=== PATIENT | male | born 1935 | race Caucasian/White ===

== ENCOUNTER 2018-01-09 05:02 | Inpatient (IN) ==
[2018-01-01 13:55] LABS: Appearance,Urine CLEAR; Bilirubin,Urine NEG (NEG); Color,Urine YELLOW; Glucose,Urine (UA) NEGATIVE (NEG); Leukocyte Esterase,Urine NEG /uL (NEG); Protein,Urine NEG (NEG); Specific Gravity,Urine 1.014 (1.000-1.035); Urine Blood NEG mg/dL (<0.03)
[2018-01-01 14:23] LABS: Basophils # (Auto) 0 K/mcL (0.0-0.3); Basophils % (Auto) 0.5 % (0.0-2.0); Eosinophils # (Auto) 0.2 K/mcL (0.0-0.7); Eosinophils % (Auto) 2.7 % (0.0-7.0); Lymphocytes # (Auto) 1.4 K/mcL (1.5-4.8); Lymphocytes % (Auto) 23.8 % (15.5-49.0); Mean Cell Volume 97.1 fL (80.0-100.0); Monocytes # (Auto) 0.9 K/mcL (0.1-0.9); Platelet Count 183 K/mcL (140-440); RBC 4.67 M/mcL (4.50-5.90); Red Cell Distribution Width 13.8 % (11.5-14.5)
[2018-01-01 14:50] LABS: Erythrocyte Sedimentation Rate 14 mm/hr (0-15)
[2018-01-01 15:40] LABS: Blood Urea Nitrogen 26 mg/dl (8-23); C-Reactive Protein < 0.3 mg/dl (0.0-0.8)
[~2018-01-09 05:02] MED LIST: ceFAZolin 1 GM VIAL IV ONE
[2018-01-09] MEDS ORDERED: 0.9 % SODIUM CHLORIDE 9 ML, KETOROLAC 30 MG, ROPIVACAINE HCL/PF 49.5 ML, EPINEPHrine 0.... IJ SCH (07:00)
[2018-01-09] MEDS ORDERED: ceFAZolin 1 GM VIAL IV SCH (07:00)
[2018-01-09] MEDS ORDERED: PROPOFOL 200 MG/20 ML VIAL IV ONE (07:35)
[2018-01-09] MEDS ORDERED: GLYCOPYRROLATE 0.2 MG/ML VIAL IV ONE (07:35)
[2018-01-09] MEDS ORDERED: ROPIVACAINE HCL/PF 30 ML VIAL IJ ONE (07:35)
[2018-01-09] MEDS ORDERED: KETAMINE 100 MG/ML ML IV ONE (07:35)
[2018-01-09] MEDS ORDERED: LIDOCAINE HCL/PF 100 MG/5 ML SYRINGE IV ONE (07:35)
[2018-01-09] MEDS ORDERED: ONDANSETRON 4 MG/2 ML VIAL IV ONE (07:35)
[2018-01-09] MEDS ORDERED: PHENYLEPHRINE 10 MG/ML VIAL IV ONE (07:35)
[2018-01-09] MEDS ORDERED: MIDAZOLAM 2 MG/2 ML VIAL IV ONE (07:35)
[2018-01-09] MEDS ORDERED: TRANEXAMIC ACID 1,000 MG/10 ML VIAL IV ONE (07:35)
[2018-01-09] MEDS ORDERED: GENTAMICIN SULFATE 800 MG/20 ML VIAL IR ONE (08:04)
[2018-01-09] MEDS ORDERED: ACETAMINOPHEN 1,000 MG/100 ML BOTTLE IV ONE (09:41)
[2018-01-09] MEDS ORDERED: METHOCARBAMOL 1,000 MG/10 ML VIAL IV PRN (09:41)
[2018-01-09] MEDS ORDERED: KETOROLAC 15 MG/ML VIAL IV PRN (09:41)
[2018-01-09] MEDS ORDERED: MEPERIDINE 25 MG/ML SYRINGE IV PRN (09:41)
[2018-01-09] MEDS ORDERED: IPRATROPIUM/ALBUTEROL 3 ML AMPUL.NEB NEB PRN (09:41)
[2018-01-09] MEDS ORDERED: ONDANSETRON 4 MG/2 ML VIAL IV PRN ×2 (09:41→10:03)
[2018-01-09] MEDS ORDERED: fentaNYL 100 MCG/2 ML VIAL IV PRN (09:41)
[2018-01-09] MEDS ORDERED: LACTATED RINGERS 1,000 ML IV SCH (09:45)
--- NOTE | 2018-01-09 10:02 | Brief Operative Note ---
Date of procedure: 01/09/18 Pre-op diagnosis: stiff TKR right Post-op diagnosis: same Procedure: revision right TKR Grafts/Implants: Yes (sigma TC 3) Anesthesia: ISAEL Surgeon: Lexa Gilbert Process Manufacturing Engineer: Tomi Dunbar Estimated blood loss (cc): 100 Tourniquet Time (Minutes): 90 Specimens Removed/Pathology: none sent Condition: stable Disposition: PACU
[2018-01-09] MEDS ORDERED: BISACODYL 10 MG SUPP.RECT PR PRN (10:03)
[2018-01-09] MEDS ORDERED: MAGNESIUM HYDROXIDE 30 ML ORAL.SUSP PO PRN (10:03)
[2018-01-09] MEDS ORDERED: BENZOCAINE/MENTHOL 1 LOZENGE PO PRN (10:03)
[2018-01-09] MEDS ORDERED: FLEETS ADULT ENEMA PR PRN (10:03)
[2018-01-09] MEDS ORDERED: TRANEXAMIC ACID 1,000 MG/10 ML VIAL IV SCH (10:03)
[2018-01-09] MEDS ORDERED: POLYETHYLENE GLYCOL 3350 17 GM PACKET PO PRN (10:03)
--- NOTE | 2018-01-09 10:52 | Operative Note ---
DATE OF OPERATION: 01/09/2018 PREOPERATIVE DIAGNOSIS: Stiff total knee replacement. POSTOPERATIVE DIAGNOSIS: Stiff total knee replacement. OPERATION: Revision right total knee. SURGEON: Lexa Gilbert M.D. MANAGER FAST FOOD: Tomi Dunbar PA-C. ANESTHESIA: General done by Demi Everett M.D. ESTIMATED BLOOD LOSS: 100 mL. TOURNIQUET TIME: 90 minutes. SUMMARY OF PROCEDURE: General anesthesia was attained. The right leg was prepped and draped. A tourniquet was put up. A midline incision was made from the quadriceps to the tibial tubercle. This was taken down to the quadriceps and medial retinaculum. The quadriceps and medial retinaculum was split. There were multiple adhesions which were released throughout. I released the adhesions between the fat pad and the tibial component. In order to invert the patella, I had to do a lateral release. The patella was mobilized laterally. The medial soft tissue was elevated. The old components were removed. The patella showed no signs of wear and was well fixed and we, therefore, did not revise the patella. The tibia was done first. The intramedullary canal was sequentially reamed. The broach was then used for the sleeve. The tibia sized to a 3. The femur was next addressed. This was reamed to 20 and then broached until the fit was tight. Prior to that, the femur was sized, and the femur sized to a 4. The distal cut was freshened up and the anterior, posterior and bevel cuts were made. We built up the femur by 4 mm distally. There was a defect laterally which was 4 mm as well. A trial was done with components. The insert sized to a 10. I did a posterior release using an osteotome. I was able to get the patient into full extension and had excellent medial-lateral stability. 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 The joint surfaces were thoroughly irrigated and the CarboJet was used as well. The trials of the actual components were prepped on the back table and connected together and included intramedullary fixation, as well as sleeves. They were next impacted. The cement was allowed to cure in full extension and excess cement was removed. The tourniquet was let down. All bleeding points were coagulated. Closure was done in 60 degrees of flexion. A two-layer closure was done of the medial retinaculum and quadriceps using simple buried sutures of #2 FiberWire in a running locking Maxon. The subcutaneous tissue was closed with 2-0 Monocryl. The skin was closed with Dura-Hernandez. A sterile compressive dressing was applied. The sponge and needle count was correct. The patient tolerated the procedure well and was taken to the recovery room in stable condition. TJF:marco Job ID: [id number] Doc ID: [id number] Lexa Gilbert MD
--- NOTE | 2018-01-09 11:28 | XRay Report ---
HISTORY: Postop arthroplasty revision FINDINGS: There is a well-positioned right total knee prosthesis. There are long intramedullary components of the prosthesis extending into the femur and tibia. Periarticular soft tissue calcifications are present along both medial lateral to the joint space. There are vascular calcifications in the thigh and calf. IMPRESSION: Well-positioned right knee prosthesis Interpreted and Authenticated by: James Pagan 01/09/18
[2018-01-09] MEDS: 0.9 % SODIUM CHLORIDE 1,000 ML IV SCH ×2 (14:54→20:21)
[2018-01-09] MEDS: ceFAZolin 1 GM VIAL IV SCH (14:54)
[2018-01-09] MEDS: 0.9 % SODIUM CHLORIDE 10 ML SYRINGE IV SCH ×2 (15:12→21:08)
[2018-01-09] MEDS: HYDROCODONE/APAP 7.5/325MG TABLET PO PRN ×2 (17:33→20:20)
[2018-01-09] MEDS: CARVEDILOL 3.125 MG TABLET PO SCH (18:12)
[2018-01-09] MEDS: METHOCARBAMOL 1,000 MG/10 ML VIAL IV PRN (21:07)
[2018-01-09] MEDS: ASPIRIN 325 MG ENTERIC COATED TABLET PO SCH (21:08)
[2018-01-09] MEDS: SIMVASTATIN 10 MG TABLET PO SCH (21:08)
[2018-01-09] MEDS: DOCUSATE SODIUM 100 MG CAPSULE PO SCH (21:08)
[2018-01-09] MEDS: SENNOSIDES 1 TABLET PO SCH (21:08)
[2018-01-09] MEDS: ZOLPIDEM 5 MG TABLET PO SCH (21:08)
[2018-01-10] MEDS: ceFAZolin 1 GM VIAL IV SCH (00:59)
[2018-01-10] MEDS ORDERED: ceFAZolin 1 GM VIAL ONE (01:03)
[2018-01-10] MEDS: HYDROCODONE/APAP 7.5/325MG TABLET PO PRN ×5 (03:30→20:56)
[2018-01-10] MEDS: 0.9 % SODIUM CHLORIDE 10 ML SYRINGE IV SCH ×3 (05:17→20:57)
[2018-01-10] MEDS: 0.9 % SODIUM CHLORIDE 1,000 ML IV SCH ×2 (06:16→17:09)
[2018-01-10] MEDS: CARVEDILOL 3.125 MG TABLET PO SCH ×2 (07:43→17:11)
[2018-01-10] MEDS: GLUCOSAMINE/CHONDROITIN SULF A 1 CAP CAPSULE PO SCH (08:09)
[2018-01-10] MEDS: CYANOCOBALAMIN (VITAMIN B-12) 500 MCG TABLET PO SCH (08:09)
[2018-01-10] MEDS: DOCUSATE SODIUM 100 MG CAPSULE PO SCH ×2 (08:10→20:57)
[2018-01-10] MEDS: HYDROCHLOROTHIAZIDE 25 MG TABLET PO SCH (08:10)
[2018-01-10] MEDS: ASPIRIN 325 MG ENTERIC COATED TABLET PO SCH ×2 (08:10→20:57)
[2018-01-10] MEDS: LOSARTAN 50 MG TABLET PO SCH (08:10)
[2018-01-10] MEDS: METHOCARBAMOL 1,000 MG/10 ML VIAL IV PRN (08:18)
--- NOTE | 2018-01-10 09:25 | Discharge Summary ---
<Lexa Gilbert - Last Filed: 01/10/18 09:23> Providers - Providers Patient information: Note initiated : 01/10/18 at 9:23 am Service Date, if different from initiated Date: [] Patient: Allen Posey 82 y/o M admitted on 01/09/18 for Right Total Knee Arthroplasty Revision. Chief Complaint: [] Date of admission: 01/09/18 Discharge date: 01/11/18 Attending physician: Lexa Gilbert Hospitalization Hospital course: R total knee replacement revision. No early complications Discharge diagnosis: total knee replacement revision Complications: none Exam - Exam Clean and dry: Yes Weight bearing status: full Range of motion: 0-50 01/10 Ortho Discharge - TKA - Patient Instructions Diet: Regular Diet Activity: activity as tolerated Total Knee Protocol: For Total Knee: Start ROM MACARIO with stationary bike or rocking chair. Work on gaining full extension of knee. Posterior dislocation precautions provided. Hip abductor strengthening and gait training instructions provided. Apply Cryocuff as instructed. Dressing Care: May shower in 3 days Patient Education: Hydrocodone/Acetaminophen (By mouth), Total Knee Replacement (DC) Additional Instructions: Discharge Instructions: Do the exercises at home that physical therapy gave you throughout the day. Weight bearing as tolerated. Wear comfortable clothing for physical therapy. You are scheduled to start physical therapy at [facility] ([phone]) on Saturday at 4:00 pm, please arrive 15 minutes early for paperwork. Take your prescription, photo ID, insurance cards, and current medication list with you to your first physical therapy appointment. 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 Cover site daily with gauze dressing. You may start showering on post op day #2. The Dermabond dressing can get wet, do not scrub dressing. Pat dry, then place new dressing (above). To avoid constipation while taking any narcotic pain medication, take an over the counter stool softener/laxative. Use your Cryocuff or ice packs as directed, on for 20 minutes at a time throughout the day. This and elevation will help with pain and swelling. Call your physician for fevers above 100.5 or pain not controlled by medication. Your prescriptions are with your discharge information. Some medications were electronically transmitted to your pharmacy of choice. Take Aspirin twice daily, for 30 days, as prescribed to prevent blood clots ( see medication list). - Follow Up Plan Follow Up Appointments: Tomi Dunbar PA-C [Physician Abseiling Instructor] - 01/20/18 1:10 pm Disposition: Home, Self-Care Prognosis: Good Rehab Potential: Good I certify that the patient requires SNF services: No Overall status at discharge: patient is progressing back to baseline - Orders For Discharge Prescriptions: Hydrocodone/APAP 7.5/325Mg [[place] 7.5-325Mg] 1 - 2 tab PO Q4HP PRN #50 tab PRN Reason: Pain Level 3-6 Additional Discharge Orders: Physical Therapy at Discharge - TKA Location: None Selected CPM Discharge Order Location: None Selected Toilet Riser Discharge Order Location: None Selected Walker Location: None Selected Pending Studies Resuscitation Status Full Code Diet Regular Diet Start Ita Jan 09 1240 Hydrocodone Bitart/Acetaminophen ([place] 7.5/325mg) 0 tab PO Q4HP PRN PRN Reason: PAIN LEVEL 3-6 Last Admin: 01/10/18 08:54 Dose: 1 tab Admin: 01/10/18 05:15 Dose: 1 tab Admin: 01/10/18 03:30 Dose: 1 tab Admin: 01/09/18 20:20 Dose: 1 tab Admin: 01/09/18 17:33 Dose: 1 tab Aspirin (Ecotrin) 325 mg PO BID [facility] Last Admin: 01/10/18 08:10 Dose: 325 mg Admin: 01/09/18 21:08 Dose: 325 mg [facility] Last Admin: 01/10/18 07:43 Dose: 3.125 mg Admin: 01/09/18 18:12 Dose: 3.125 mg Cyanocobalamin (Vitamin B-12) 500 mcg PO DAILY [facility] Last Admin: 01/10/18 08:09 Dose: 500 mcg Docusate Sodium (Colace) 100 mg PO BID [facility] Last Admin: 01/10/18 08:10 Dose: 100 mg Admin: 01/09/18 21:08 Dose: 100 mg Glucosamine/Chondroitin (Glucosamine-Chondroitin Cap) 1 cap PO DAILY [facility] Last Admin: 01/10/18 08:09 Dose: 1 cap Hydrochlorothiazide (Oretic) 25 mg PO DAILY [facility] Last Admin: 01/10/18 08:10 Dose: 25 mg Sodium Chloride (Sodium Chloride 0.9%) 1,000 mls @ 100 mls/hr IV .Q10H [facility] Last Admin: 01/10/18 06:16 Dose: Infusion: 01/10/18 01:35 Dose: 0 mls/hr Admin: 01/09/18 20:21 Dose: Not Given Admin: 01/09/18 14:54 Dose: 100 mls/hr Losartan Potassium (Cozaar) 50 mg PO DAILY [facility] Last Admin: 01/10/18 08:10 Dose: 50 mg Methocarbamol (Robaxin) 750 mg IV Q6HP PRN PRN Reason: Muscle Spasm Last Admin: 01/10/18 08:18 Dose: 750 mg Admin: 01/09/18 21:07 Dose: 750 mg Senna (Senokot) 2 tab PO HS [facility] Last Admin: 01/09/18 21:08 Dose: 2 tab Simvastatin (Zocor) 20 mg PO [facility] Last Admin: 01/09/18 21:08 Dose: 20 mg Sodium Chloride (Saline Flush) 10 ml IV Q8 [facility] Last Admin: 01/10/18 05:17 Dose: 10 ml Admin: 01/09/18 21:08 Dose: Not Given Admin: 01/09/18 15:12 Dose: Not Given Zolpidem Tartrate (Ambien) 5 mg PO [facility] Last Admin: 01/09/18 21:08 Dose: 5 mg Shift Summary 01/10/18 04:30 Shift Summary by Candi Carlisle Pt able to stand at side of bed last evening and take a few steps. CPM at 35 deg. Pt has been taking one norco 7.5 at a time. Last at 0330 will medicate again prior to shift change. Pt has Keith cath in place draining clear yellow urine. Orders to D/C post op day 1. Pt was awake in bead each time this RN entered room. IV is SL. Will update with verbal report. Initialized on 01/10/18 04:30 - END OF NOTE <Tomi Dunbar - Last Filed: 01/11/18 10:29> Providers - Providers Patient information: Note initiated : 01/11/18 at 10:17 am Service Date, if different from initiated Date: [] Patient: Allen Posey 82 y/o M admitted on 01/09/18 for Right Total Knee Arthroplasty Revision. Chief Complaint: [] Exam - Exam Incision healing: Yes Ortho Discharge - TKA - Patient Instructions Total Knee Protocol: For Total Knee: Start ROM MACARIO with stationary bike or rocking chair. Work on gaining full extension of knee. Posterior dislocation precautions provided. Hip abductor strengthening and gait training instructions provided. Apply Cryocuff as instructed. Pending Studies Resuscitation Status Full Code Diet Regular Diet Start Ita Jan 09 1240 Hydrocodone Bitart/Acetaminophen ([place] 7.5/325mg) 0 tab PO Q4HP PRN PRN Reason: PAIN LEVEL 3-6 Last Admin: 01/11/18 08:26 Dose: 1 tab Admin: 01/11/18 02:24 Dose: 2 tab Admin: 01/10/18 20:56 Dose: 2 tab Admin: 01/10/18 12:24 Dose: 1 tab Admin: 01/10/18 08:54 Dose: 1 tab Admin: 01/10/18 05:15 Dose: 1 tab Admin: 01/10/18 03:30 Dose: 1 tab Admin: 01/09/18 20:20 Dose: 1 tab Admin: 01/09/18 17:33 Dose: 1 tab Aspirin (Ecotrin) 325 mg PO BID [facility] Last Admin: 01/11/18 08:22 Dose: 325 mg Admin: 01/10/18 20:57 Dose: 325 mg Admin: 01/10/18 08:10 Dose: 325 mg Admin: 01/09/18 21:08 Dose: 325 mg Carvedilol (Coreg) [facility] Last Admin: 01/11/18 08:22 Dose: 3.125 mg Admin: 01/10/18 17:11 Dose: 3.125 mg Admin: 01/10/18 07:43 Dose: 3.125 mg Admin: 01/09/18 18:12 Dose: 3.125 mg Cyanocobalamin (Vitamin B-12) 500 mcg PO DAILY [facility] Last Admin: 01/11/18 08:22 Dose: 500 mcg Admin: 01/10/18 08:09 Dose: 500 mcg Docusate Sodium (Colace) 100 mg PO BID [facility] Last Admin: 01/11/18 08:22 Dose: 100 mg Admin: 01/10/18 20:57 Dose: 100 mg Admin: 01/10/18 08:10 Dose: 100 mg Admin: 01/09/18 21:08 Dose: 100 mg Glucosamine/Chondroitin (Glucosamine-Chondroitin Cap) 1 cap PO DAILY [facility] Last Admin: 01/11/18 08:22 Dose: 1 cap Admin: 01/10/18 08:09 Dose: 1 cap Hydrochlorothiazide (Oretic) 25 mg PO DAILY [facility] Last Admin: 01/11/18 08:22 Dose: 25 mg Admin: 01/10/18 08:10 Dose: 25 mg Sodium Chloride (Sodium Chloride 0.9%) 1,000 mls @ 100 mls/hr IV .Q10H [facility] Last Admin: 01/11/18 01:25 Dose: Admin: 01/10/18 17:09 Dose: Admin: 01/10/18 06:16 Dose: Infusion: 01/10/18 01:35 Dose: 0 mls/hr Admin: 01/09/18 20:21 Dose: Not Given Admin: 01/09/18 14:54 Dose: 100 mls/hr Losartan Potassium (Cozaar) 50 mg PO DAILY [facility] Last Admin: 01/11/18 08:22 Dose: 50 mg Admin: 01/10/18 08:10 Dose: 50 mg Methocarbamol (Robaxin) 750 mg IV Q6HP PRN PRN Reason: Muscle Spasm Last Admin: 01/10/18 08:18 Dose: 750 mg Admin: 01/09/18 21:07 Dose: 750 mg Omeprazole (Prilosec) 20 mg PO ACB [facility] Last Admin: 01/11/18 08:53 Dose: 20 mg Senna (Senokot) 2 tab PO HS [facility] Last Admin: 01/10/18 20:56 Dose: 2 tab Admin: 01/09/18 21:08 Dose: 2 tab Simvastatin (Zocor) 20 mg PO HS [facility] Last Admin: 01/10/18 20:56 Dose: 20 mg Admin: 01/09/18 21:08 Dose: 20 mg Sodium Chloride (Saline Flush) 10 ml IV Q8 [facility] Last Admin: 01/11/18 05:51 Dose: 10 ml Admin: 01/10/18 20:57 Dose: 10 ml Admin: 01/10/18 14:30 Dose: 10 ml Admin: 01/10/18 05:17 Dose: 10 ml Admin: 01/09/18 21:08 Dose: Not Given Admin: 01/09/18 15:12 Dose: Not Given Zolpidem Tartrate (Ambien) 5 mg PO HS [facility] Last Admin: 01/10/18 20:57 Dose: 5 mg Admin: 01/09/18 21:08 Dose: 5 mg Shift Summary 01/11/18 03:43 Shift Summary by Candi Carlisle Pt recieved two pain pills at HS and was able to get pain down enough to get some sleep. Pt is using urinal at night to void with QS out. Dressing to right knee is CDI. Pt received 2 more pain pills around 230. Pt is up with SBA and FWW in room. CPM on for 2 hours no change in settings. Pt tolerating well. Low grade temp that resolves with IS. Please encourage pt to use IS more frequently during the day. Will update with verbal report. Initialized on 01/11/18 03:43 - END OF NOTE
--- NOTE | 2018-01-10 09:40 | Orthopedic Progress Note ---
Subjective Patient information: Note initiated : 01/10/18 at 9:37 am Service Date, if different from initiated Date: [] Patient: Allen Posey 82 y/o M admitted on 01/09/18 for Right Total Knee Arthroplasty Revision. Chief Complaint: [] Principal diagnosis: knee replacement revision right Interval history: surgery yesterday Pertinent ROS: no medical complications Objective Vital signs: Vital Signs Temp Pulse Resp BP Pulse Ox 01/10/18 06:52 98.2 F 16 95/59 94 01/10/18 04:00 97.6 F 94 H 20 114/65 90 01/10/18 00:00 98.9 F 84 20 123/74 92 01/09/18 20:00 97.6 F 80 18 128/68 96 01/09/18 16:09 97.8 F 60 14 138/75 97 01/09/18 13:39 60 138/75 97 01/09/18 13:08 74 137/84 99 01/09/18 12:39 68 112/70 97 01/09/18 12:24 60 122/72 96 01/09/18 12:09 60 121/66 96 01/09/18 12:05 95.4 F L 91 H 12 117/64 95 01/09/18 11:54 62 120/71 97 01/09/18 11:39 61 117/64 95 01/09/18 11:13 97.0 F 60 14 114/53 98 01/09/18 10:56 97.1 F 60 12 98/47 97 01/09/18 10:51 97.1 F 60 12 100/55 100 01/09/18 10:46 97.2 F 61 12 136/65 100 01/09/18 10:41 97.3 F 62 12 166/81 100 01/09/18 10:36 97.2 F 60 12 181/90 100 01/09/18 10:31 97.2 F 60 11 L 133/70 100 01/09/18 10:26 97.2 F 60 10 L 130/67 100 Intake and Output 01/09/18 01/10/18 01/10/18 21:59 05:59 13:59 Intake Total 240 / 240 0 / 2049 800 / 800 Output Total 850 / 850 Balance 240 / 240 1200 / 1200 800 / 800 Intake: IV 1000 / 1000 Sodium Chloride 0.9% 1,000 ml @ 1000 / 1000 100 mls/hr IV .Q10H [facility] Rx#: [id number] Oral 240 / 240 1050 / 1050 800 / 800 Output: Urine Catheter Amount 850 / 850 Other: Meal Dinner Percent of Meal Consumed 100% Feeding Ability Independent Urine Appearance Uretheral (Keith) Clear Weight 171 lb Intake & Output: Intake & Output 01/09/18 01/10/18 01/10/18 21:59 05:59 13:59 Intake Total 240 / 240 2050 / 2050 800 / 800 Output Total 850 / 850 Balance 240 / 240 1200 / 1200 800 / 800 Weight 171 lb Intake: IV 1000 / 1000 Sodium Chloride 0.9% 1,000 ml @ 1000 / 1000 100 mls/hr IV .Q10H [facility] Rx#: [id number] Oral 240 / 240 1050 / 1050 800 / 800 Output: Urine Catheter Amount 850 / 850 Other: Meal Dinner Percent of Meal Consumed 100% Feeding Ability Independent Urine Appearance Uretheral (Keith) Clear Dressing: Yes clean, Yes dry Weight bearing status: as tolerated Neurological exam IM: Yes motor sensory intact Extremities exam IM: Yes calf tenderness - Diagnostic Results Knee x-ray: image reviewed (well aligned revision TKR) - Labs CBC & BMP: 01/10/18 04:05 01/01/18 11:49 Labs: 01/10/18 01/01/18 04:05 11:49 Hgb 12.3 L 14.9 Hct 36.6 L 45.3
[2018-01-10] MEDS: SIMVASTATIN 10 MG TABLET PO SCH (20:56)
[2018-01-10] MEDS: SENNOSIDES 1 TABLET PO SCH (20:56)
[2018-01-10] MEDS: ZOLPIDEM 5 MG TABLET PO SCH (20:57)
[2018-01-11] MEDS: 0.9 % SODIUM CHLORIDE 1,000 ML IV SCH (01:25)
[2018-01-11] MEDS: HYDROCODONE/APAP 7.5/325MG TABLET PO PRN ×3 (02:24→13:20)
[2018-01-11] MEDS: 0.9 % SODIUM CHLORIDE 10 ML SYRINGE IV SCH (05:51)
[2018-01-11] MEDS ORDERED: OMEPRAZOLE 20 MG CAPSULE PO SCH (07:30)
[2018-01-11] MEDS: ASPIRIN 325 MG ENTERIC COATED TABLET PO SCH (08:22)
[2018-01-11] MEDS: HYDROCHLOROTHIAZIDE 25 MG TABLET PO SCH (08:22)
[2018-01-11] MEDS: LOSARTAN 50 MG TABLET PO SCH (08:22)
[2018-01-11] MEDS: GLUCOSAMINE/CHONDROITIN SULF A 1 CAP CAPSULE PO SCH (08:22)
[2018-01-11] MEDS: CYANOCOBALAMIN (VITAMIN B-12) 500 MCG TABLET PO SCH (08:22)
[2018-01-11] MEDS: DOCUSATE SODIUM 100 MG CAPSULE PO SCH (08:22)
[2018-01-11] MEDS: CARVEDILOL 3.125 MG TABLET PO SCH (08:22)
--- NOTE | 2018-01-11 10:32 | Discharge Summary ---
Providers - Providers Patient information: Note initiated : 01/11/18 at 10:29 am Service Date, if different from initiated Date: [] Patient: Allen Posey 82 y/o M admitted on 01/09/18 for Right Total Knee Arthroplasty Revision. Chief Complaint: [] Discharge date: 01/11/18 Hospitalization Hospital course: Patient was admitted for PT and pain control after surgery. He had no complications during his stay. Discharge diagnosis: s/p right total knee revision Exam - Exam Clean and dry: Yes Weight bearing status: full Range of motion: 10-70 Ortho Discharge - TKA - Patient Instructions Diet: Regular Diet Activity: activity as tolerated Total Knee Protocol: For Total Knee: Start ROM MACARIO with stationary bike or rocking chair. Work on gaining full extension of knee. Posterior dislocation precautions provided. Hip abductor strengthening and gait training instructions provided. Apply Cryocuff as instructed. Dressing Care: May shower in 2 days, Other (Leave dermabond in place until follow up appointment) Patient Education: Hydrocodone/Acetaminophen (By mouth), Total Knee Replacement (DC) Additional Instructions: Discharge Instructions: Do the exercises at home that physical therapy gave you throughout the day. Weight bearing as tolerated. Wear comfortable clothing for physical therapy. You are scheduled to start physical therapy at [facility] ([phone]) on Saturday at 4:00 pm, please arrive 15 minutes early for paperwork. Take your prescription, photo ID, insurance cards, and current medication list with you to your first physical therapy appointment. Take your prescription to order picker any medication or equipment (such as walker, crutches, toilet riser or C.P.M.) If you have Dermabond (a dressing with a mesh-like appearance), DO NOT remove mesh. Cover site daily with gauze dressing. You may start showering on post op day #2. The Dermabond dressing can get wet, do not scrub dressing. Pat dry, then place new dressing (above). To avoid constipation while taking any narcotic pain medication, take an over the counter stool softener/laxative. Use your Cryocuff or ice packs as directed, on for 20 minutes at a time throughout the day. This and elevation will help with pain and swelling. Call your physician for fevers above 100.5 or pain not controlled by medication. Your prescriptions are with your discharge information. Some medications were electronically transmitted to your pharmacy of choice. Take Aspirin twice daily, for 30 days, as prescribed to prevent blood clots ( see medication list). - Follow Up Plan Follow Up Appointments: Tomi Dunbar PA-C [Physician Mailing Manager] - 01/20/18 1:10 pm Disposition: Home, Self-Care Prognosis: Good Rehab Potential: Good I certify that the patient requires SNF services: No - Orders For Discharge Prescriptions: Hydrocodone/APAP 7.5/325Mg [[place] 7.5-325Mg] 1 - 2 tab PO Q4HP PRN #50 tab PRN Reason: Pain Level 3-6 Additional Discharge Orders: Physical Therapy at Discharge - TKA Location: None Selected CPM Discharge Order Location: None Selected Toilet Riser Discharge Order Location: None Selected Walker Location: None Selected Pending Studies Resuscitation Status Full Code Diet Regular Diet Start Ita Oct 18 1240 Hydrocodone Bitart/Acetaminophen ([place] 7.5/325mg) 0 tab PO Q4HP PRN PRN Reason: PAIN LEVEL 3-6 Last Admin: 01/11/18 08:26 Dose: 1 tab Admin: 01/11/18 02:24 Dose: 2 tab Admin: 01/10/18 20:56 Dose: 2 tab Admin: 01/10/18 12:24 Dose: 1 tab Admin: 01/10/18 08:54 Dose: 1 tab Admin: 01/10/18 05:15 Dose: 1 tab Admin: 01/10/18 03:30 Dose: 1 tab Admin: 01/09/18 20:20 Dose: 1 tab Admin: 01/09/18 17:33 Dose: 1 tab Aspirin (Ecotrin) 325 mg PO BID [facility] Last Admin: 01/11/18 08:22 Dose: 325 mg Admin: 01/10/18 20:57 Dose: 325 mg Admin: 01/10/18 08:10 Dose: 325 mg Admin: 01/09/18 21:08 Dose: 325 mg [facility]) [facility] Last Admin: 01/11/18 08:22 Dose: 3.125 mg Admin: 01/10/18 17:11 Dose: 3.125 mg Admin: 01/10/18 07:43 Dose: 3.125 mg Admin: 01/09/18 18:12 Dose: 3.125 mg Cyanocobalamin (Vitamin B-12) 500 mcg PO DAILY [facility] Last Admin: 01/11/18 08:22 Dose: 500 mcg Admin: 01/10/18 08:09 Dose: 500 mcg Docusate Sodium (Colace) 100 mg PO BID [facility] Last Admin: 01/11/18 08:22 Dose: 100 mg Admin: 01/10/18 20:57 Dose: 100 mg Admin: 01/10/18 08:10 Dose: 100 mg Admin: 01/09/18 21:08 Dose: 100 mg Glucosamine/Chondroitin (Glucosamine-Chondroitin Cap) 1 cap PO DAILY [facility] Last Admin: 01/11/18 08:22 Dose: 1 cap Admin: 01/10/18 08:09 Dose: 1 cap Hydrochlorothiazide (Oretic) 25 mg PO DAILY [facility] Last Admin: 01/11/18 08:22 Dose: 25 mg Admin: 01/10/18 08:10 Dose: 25 mg Sodium Chloride (Sodium Chloride 0.9%) 1,000 mls @ 100 mls/hr IV .Q10H [facility] Last Admin: 01/11/18 01:25 Dose: Admin: 01/10/18 17:09 Dose: Admin: 01/10/18 06:16 Dose: Infusion: 01/10/18 01:35 Dose: 0 mls/hr Admin: 01/09/18 20:21 Dose: Not Given Admin: 01/09/18 14:54 Dose: 100 mls/hr Losartan Potassium (Cozaar) 50 mg PO DAILY [facility] Last Admin: 01/11/18 08:22 Dose: 50 mg Admin: 01/10/18 08:10 Dose: 50 mg Methocarbamol (Robaxin) 750 mg IV Q6HP PRN PRN Reason: Muscle Spasm Last Admin: 01/10/18 08:18 Dose: 750 mg Admin: 01/09/18 21:07 Dose: 750 mg Omeprazole (Prilosec) 20 mg PO ACB [facility] Last Admin: 01/11/18 08:53 Dose: 20 mg Senna (Senokot) 2 tab PO HS [facility] Last Admin: 01/10/18 20:56 Dose: 2 tab Admin: 01/09/18 21:08 Dose: 2 tab Simvastatin (Zocor) 20 mg PO HS [facility] Last Admin: 01/10/18 20:56 Dose: 20 mg Admin: 10/18/18 21:08 Dose: 20 mg Sodium Chloride (Saline Flush) 10 ml IV Q8 [facility] Last Admin: 01/11/18 05:51 Dose: 10 ml Admin: 01/10/18 20:57 Dose: 10 ml Admin: 01/10/18 14:30 Dose: 10 ml Admin: 01/10/18 05:17 Dose: 10 ml Admin: 01/09/18 21:08 Dose: Not Given Admin: 01/09/18 15:12 Dose: Not Given Zolpidem Tartrate (Ambien) 5 mg PO HS [facility] Last Admin: 01/10/18 20:57 Dose: 5 mg Admin: 01/09/18 21:08 Dose: 5 mg Shift Summary 01/11/18 03:43 Shift Summary by Candi Carlisle Pt recieved two pain pills at HS and was able to get pain down enough to get some sleep. Pt is using urinal at night to void with QS out. Dressing to right knee is CDI. Pt received 2 more pain pills around 230. Pt is up with SBA and FWW in room. CPM on for 2 hours no change in settings. Pt tolerating well. Low grade temp that resolves with IS. Please encourage pt to use IS more frequently during the day. Will update with verbal report. Initialized on 01/11/18 03:43 - END OF NOTE
== END 2018-01-11 15:03 | disposition home or self-care (01) | DRG 468 ==
LOC: MEDSUR 05:02
PROVIDERS: ADMIT Orthopaedic Surgery Foot and Ankle Surgery; ATTEND Orthopaedic Surgery Foot and Ankle Surgery
CPT/HCPCS: 62322; 97161; C1713; C1776; J0131; J0690; J1580; J2001; J2250; J2370; J2405; J2795; J2800; J7030; J7120

== ENCOUNTER 2021-01-16 10:33 | Inpatient (IN) ==
[2021-01-16] MEDS ORDERED: IOPAMIDOL 100 ML BOTTLE IV ONE ×2 (10:34→15:05)
[2021-01-16] MEDS ORDERED: 0.9 % SODIUM CHLORIDE 500 ML IV ONE ×2 (10:46→11:10)
[2021-01-16 11:14] LABS: POC Blood Urea Nitrogen 33 mg/dL (6-20); POC CO2 23 mmol/L (22-30); POC Calcium, Ionized 1.11 mmEq/L (1.16-1.32); POC Chloride 98 mEq/L (96-108); POC Glucose, Random 196 mg/dL (70-105); POC Hematocrit 42 % (41-55); POC Potassium 4.1 mEql/L (3.3-5.1); POC Sodium 134 mEq/L (133-145)
--- NOTE | 2021-01-16 11:34 | XRay Report ---
HISTORY: Chest pain, syncopal episodes FINDINGS: The lungs are clear. The heart size is normal and there is no congestive heart failure. 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 No congestive heart failure is present. There is no pleural effusion. The mediastinum and peggy are normal. There has been no significant change since 01/07/21. Patient had reconstructive surgery in the left shoulder. IMPRESSION: Normal chest. Interpreted and Authenticated by: James Pagan 01/16/21
[2021-01-16] MEDS ORDERED: 0.9 % SODIUM CHLORIDE 1,000 ML IV ONE (11:48)
--- NOTE | 2021-01-16 11:51 | Emergency Department Note ---
Syncope HPI General Chief Complaint: Syncope Stated Complaint: syncopal episodes Time Seen by Provider: 01/16/21 10:44 Source: patient and EMS Mode of arrival: EMS Limitations: no limitations History of Present Illness HPI Narrative: Patient is an 85-year-old gentleman arrives emergency department by ambulance accompanied by his complaining of syncope. History is provided by the patient with some supplemental information from his . He says he was using the bathroom when his legs suddenly gave out from under him and he fell to the ground. He called out to his who then arrived to the bathroom to find him appearing quite pale and somewhat lethargic. He does not think he suffered any significant injuries from the fall but continues to feel quite fatigued and lethargic. He thinks he may have briefly lost consciousness during this episode. Medics arrived to find him hypotensive and transported him to the hospital. He was seen in our emergency department 9 days ago for a fall and rib injuries. He notes that his rib pain has been gradually improving ever since. He denies any fever chills chest pain or shortness of breath at this time. His notes that he has been having decreased oral intake recently and he says that he just has not felt like eating or drinking very much. Related Data Home Medications Medication Instructions Recorded Confirmed carvedilol 3.125 mg PO BIDCC 01/01/18 01/16/21 hydrochlorothiazide 25 mg PO DAILY 01/01/18 01/16/21 losartan [Cozaar] 50 mg PO DAILY 01/01/18 01/16/21 pravastatin 40 mg PO HS 01/01/18 01/16/21 nitroglycerin 0.4 mg SUBLINGUAL Q5M PRN 01/16/21 01/16/21 Allergies Allergy/AdvReac Type Severity Reaction Status Date / Time morphine AdvReac Mild Itching Verified 12/23/20 12:11 Review of Systems ROS ROS Narrative: Narrative: All systems ED: reviewed and negative except as stated. Cardiovascular: Denies chest pain Respiratory: Denies shortness of breath and cough PFSH Narrative Patient History Narrative: Narrative: Medical/Surgical/Family History All Active Problems (Updated 01/16/21 @ 17:17 by Fritz Steven DO) History of coronary artery bypass graft x 3 (Acute) Elevated troponin (Acute) Chronic kidney disease (CKD) stage G3b/A1, moderately decreased glomerular filtration rate (GFR) between 30-44 mL/min/1.73 square meter and albuminuria creatinine ratio less than 30 mg/g (Acute) Bilateral pulmonary embolism (Acute) Contusion of rib on right side (Acute) Contusion of right hip, initial encounter (Acute) Medical History Dupuytren's contracture of right hand Social History Smoking Status: Former smoker Alcohol Intake Frequency: 2+ drinks per day Substance Use: does not use Exam Narrative Narrative: I reviewed the vital signs. Gen -patient is slightly drowsy but arousable to verbal stimuli and in no acute distress. The patient is well groomed. HEENT -head is atraumatic. There is no conjunctival pallor or scleral icterus. Mucous membranes are dry. CV -S1-S2 regular rate and rhythm. Peripheral pulses are palpable. There is no JVD. Resp -breathing is nonlabored. Lungs are clear to auscultation bilaterally. There is no cyanosis. GI - Abdomen is soft and nontender to palpation. There is no guarding or rebound tenderness. Derm -skin is warm and dry. There is no visible rash. MSK -there is no midline vertebral tenderness to palpation Psych -patient has appropriate affect. The patient does not appear internally stimulated. Neuro -patient answers questions appropriately with fluent speech. Patient moves all present extremities equally. General Limitations: no limitations Course Vital Signs Vital signs: Vital Signs Temperature 95.9 F L 01/16/21 10:42 Pulse Rate 93 H 01/16/21 10:42 Respiratory Rate 20 01/16/21 10:42 Blood Pressure 132/115 01/16/21 10:42 Pulse Oximetry (%) 90 01/16/21 10:42 Temperature 98.2 F 01/16/21 14:37 Pulse Rate 93 H 01/16/21 16:20 Respiratory Rate 22 01/16/21 16:20 Blood Pressure 127/97 01/16/21 16:01 Pulse Oximetry (%) 95 01/16/21 16:20 [facility] Narrative Medical decision making narrative: I personally performed interpreted limited bedside transthoracic echocardiogram. Obtain parasternal long and short axis views which were somewhat limited patient positioning and body habitus. There is no large pericardial effusion. There is normal left ventricular ejection fraction. I was unable to obtain satisfactory views to assess for right ventricular strain. Patient presents with syncope and generalized weakness. Given concerns for possible hemorrhage suffered from his fall I obtained a CT scan of his head cervical spine chest abdomen and pelvis. CT head and neck did not reveal any traumatic findings. CT chest abdomen pelvis reveals large bilateral pulmonary emboli with possible right ventricular strain. Given this his mild troponin elevation and elevated BNP I believe his syncope and hypotension are due to pulmonary embolus. I discussed the test results with the patient and his . They are agreeable with the plan for anticoagulation at admission. I did consider administering IV thrombolytics but as the patient's blood pressure has improved somewhat with IV fluids he appears to be mentating well and maintaining vital organ per fusion and his mean arterial pressure is actually fairly good I think the risks of IV thrombolytics would be greater than any potential benefit at this time. I discussed the patient's history examination diagnostic findings with Dr. Lee who will evaluate the patient and accepts admission to his service. Critical care time I provided [31] minutes of critical care time. This was in addition to any separately billable procedures. The patient was given IV fluids to treat his hypotension. He was closely monitored for signs of worsening perfusion or hypotension and the possible need for IV thrombolytics to treat his pulmonary embolus. He was given IV heparin to prevent propagation of his pulmonary embolus and worsening hypotension. The patient was closely monitored for response to treatment and stability of vital signs throughout their emergency department stay. Lab Data Lab results reviewed: Yes I reviewed the patient's lab results. Result diagrams: 01/16/21 10:55 Labs: Lab Results 01/16/21 01/16/21 01/16/21 Range/Units 10:55 10:55 10:55 WBC 7.2 (4.5-11.0) K/mcL RBC 4.20 L (4.63-6.08) M/mcL Hgb 14.1 (13.7-17.5) g/dL Hct 43.5 (40.1-51.0) % POC Hct 42 (41-55) % MCV 103.6 H (80.0-100.0) fL MCH 33.6 (26.0-34.0) pg MCHC 32.4 (31.0-36.0) g/dL RDW 12.7 (11.5-14.5) % Plt Count 155 (140-440) K/mcL MPV 10.7 H (7.4-10.4) fL Neut % (Auto) 61.9 (38.0-78.0) % Lymph % (Auto) 22.7 (15.5-49.0) % Brooke % (Auto) 12.1 H (1.0-12.0) % Eos % (Auto) 2.2 (0.0-7.0) % Baso % (Auto) 1.1 (0.0-2.0) % Lymph # (Auto) 1.63 (1.50-4.80) K/mcL Brooke # (Auto) 0.87 (0.10-0.90) K/mcL Eos # (Auto) 0.16 (0.00-0.70) K/mcL Baso # (Auto) 0.08 (0.00-0.30) K/mcL Absolute Neutrophils 4.44 (1.80-8.00) K/mcL PT (11.9-14.5) sec INR (0.9-1.1) APTT (20.0-37.0) sec POC Sodium 134 (133-145) mEq/L POC Potassium 4.1 (3.3-5.1) mEql/L POC Chloride 98 (96-108) mEq/L POC Total CO2 23 (22-30) mmol/L POC BUN 33 H (6-20) mg/dL POC Creatinine 2.0 H (0.6-1.2) mg/dL POC Glucose 196 H (70-105) mg/dL POC WB Ioniz Calcium 1.11 L (1.16-1.32) mmEq/L Troponin T 0.03 H (<0.03) ng/mL NT-Pro-B Natriuret Pep 1154.0 H (<450.0) pg/mL 01/16/21 Range/Units 10:55 WBC (4.5-11.0) K/mcL RBC (4.63-6.08) M/mcL Hgb (13.7-17.5) g/dL Hct (40.1-51.0) % POC Hct (41-55) % MCV (80.0-100.0) fL MCH (26.0-34.0) pg MCHC (31.0-36.0) g/dL RDW (11.5-14.5) % Plt Count (140-440) K/mcL MPV (7.4-10.4) fL Neut % (Auto) (38.0-78.0) % Lymph % (Auto) (15.5-49.0) % Brooke % (Auto) (1.0-12.0) % Eos % (Auto) (0.0-7.0) % Baso % (Auto) (0.0-2.0) % Lymph # (Auto) (1.50-4.80) K/mcL Brooke # (Auto) (0.10-0.90) K/mcL Eos # (Auto) (0.00-0.70) K/mcL Baso # (Auto) (0.00-0.30) K/mcL Absolute Neutrophils (1.80-8.00) K/mcL PT 15.7 H (11.9-14.5) sec INR 1.2 H (0.9-1.1) APTT 35.9 (20.0-37.0) sec POC Sodium (133-145) mEq/L POC Potassium (3.3-5.1) mEql/L POC Chloride (96-108) mEq/L POC Total CO2 (22-30) mmol/L POC BUN (6-20) mg/dL POC Creatinine (0.6-1.2) mg/dL POC Glucose (70-105) mg/dL POC WB Ioniz Calcium (1.16-1.32) mmEq/L Troponin T (<0.03) ng/mL NT-Pro-B Natriuret Pep (<450.0) pg/mL EKG Data EKG #1: EKG attestation: Yes I reviewed and interpreted this EKG. EKG results narrative: EKG performed at 10:37 AM: Paced rhythm, rate 92. Nonspecific interventricular conduction delay. QTc is prolonged at 533. No old EKG immediately available for comparison. EKG was interpreted by me. Discharge Plan Patient/Caregiver Discharge Instructions Pt seen by SERVICE SUPPORT REPRESENTATIVE/PA only: No Clinical Impression: Bilateral pulmonary embolism Patient Disposition: Xfer As Inpt ([facility]) Condition: Fair Discharge Date/Time: 01/16/21 14:50
[2021-01-16 12:03] LABS: Basophils # (Auto) 0.08 K/mcL (0.00-0.30); Basophils % (Auto) 1.1 % (0.0-2.0); Eosinophils # (Auto) 0.16 K/mcL (0.00-0.70); Eosinophils % (Auto) 2.2 % (0.0-7.0); Hematocrit 43.5 % (40.1-51.0); Hemoglobin 14.1 g/dL (13.7-17.5); Lymphocytes # (Auto) 1.63 K/mcL (1.50-4.80); Lymphocytes % (Auto) 22.7 % (15.5-49.0); Mean Cell Volume 103.6 fL (80.0-100.0); Mean Corpuscular HGB Conc 32.4 g/dL (31.0-36.0); Mean Platelet Volume 10.7 fL (7.4-10.4); Monocytes # (Auto) 0.87 K/mcL (0.10-0.90); Monocytes % (Auto) 12.1 % (1.0-12.0); Neutrophils % (Auto) 61.9 % (38.0-78.0); Platelet Count 155 K/mcL (140-440); Red Cell Distribution Width 12.7 % (11.5-14.5); WBC 7.2 K/mcL (4.5-11.0)
--- NOTE | 2021-01-16 13:05 | Cat Scan Report ---
History: Fell, head injury TECHNIQUE: The brain was imaged without contrast in axial plane at 2.5 mm intervals. Radiation exposure was limited using dose reduction technology. FINDINGS: Bone windows show no skull fracture. There is no intracranial hemorrhage or abnormal extra-axial fluid collection. Age-related degenerative changes are present with moderate atrophy, most apparent in the frontal and temporal lobes. There are patchy areas of decreased attenuation most apparent in the centrum semiovale of both parietal lobes. This may be age-related ischemia or degeneration. Along the inferior border of the left external capsule, deep to the sylvian fissure there is a 9 mm low-attenuation lesion which may be an old lacunar infarct. No acute infarct is detected. The ventricles are prominent but proportionate to the atrophy. Postsurgical changes are present in the orbits with an ocular band around the left globe and postcataract surgery. 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 Steven was called with the report Interpreted and Authenticated by: James Pagan 01/16/21
--- NOTE | 2021-01-16 13:05 | Cat Scan Report ---
History: Syncopal episode fell with multiple injuries TECHNIQUE: Following injection of intravenous nonionic contrast the patient was imaged from the thoracic inlet through the symphysis pubis. Sagittal and coronal reformats were created along with MIPS images of the chest. FINDINGS:. CHEST: There are multiple pulmonary emboli centrally in the right lung. There is also a nonocclusive saddle embolus in the main pulmonary artery. Clot extends into the left lower lobe as well as lingula and all three lobes and the right side. There is mild right heart strain. The main pulmonary artery is 3.7 cm in diameter compared to 3.3 cm with the ascending aorta at the same level. The right ventricle is slightly larger in transverse diameter than the left. Patient has underlying mild interstitial fibrosis throughout both lungs. There is no pulmonary contusion, pneumothorax or consolidating infiltrate. No mass is present. The trachea and bronchi are normal. There has been a prior sternotomy. Pacemaker is present with leads in the right atrium and ventricle. Heart size is within normal limits. Bone windows show no fracture or pneumothorax. Spine has a moderate kyphotic curvature with arthritis at multiple levels. Abdomen and pelvis: There is mild fatty infiltration of the liver. A small hiatus hernia is present. There is focal fatty infiltration in the left lobe adjacent to the gallbladder fossa. The gallbladder has been removed. The bile ducts are nondilated. There is no evidence of mass or inflammation in the pancreas. The spleen, adrenals are normal. There are several cysts in the right kidney. No solid mass, stone or hydronephrosis are present in either kidney. Large amount calcified plaque is present along the wall of normal caliber abdominal aorta and iliac arteries. There are several diverticula in the sigmoid colon. There is no acute diverticulitis. Small bowel is normal. No free fluid or free air present within the abdomen or pelvis. There is no adenopathy. Bone windows show advanced degenerative disc disease and arthritis throughout the lumbar spine. There is no spinal or pelvic fracture. IMPRESSION: Bilateral pulmonary emboli with a saddle embolus in the main pulmonary artery. No evidence of lacerated organs within the chest abdomen or pelvis Degenerative changes in the spine Dr. Steven was called with the report Interpreted and Authenticated by: James Pagan 01/16/21
--- NOTE | 2021-01-16 13:05 | Cat Scan Report ---
History: Syncopal episode fell and neck injury TECHNIQUE: The neck was imaged in axial plane without contrast at 2.5 mm intervals. Sagittal and coronal reformats were created. The radiation exposure was limited using dose reduction technology. FINDINGS: The cervico-occipital junction is normal. Severe arthritis is noted between the odontoid and anterior ring of C1. Severe disc space narrowing is present at C4-5 and moderate to severe narrowing at C3-4. C5-C6 disc is mildly narrowed and there are spurs at all three levels. There is no fracture or destructive bone lesion. Moderate osteoarthritis is present in the left temporal mandibular joint. There are densely calcified plaques in the carotid bifurcations bilaterally. There are small ossifications in the ligamentum nuchae posterior to the spinous processes in the mid and lower neck. Mucosal thickening is seen along the hoffman of the sphenoid sinuses. Patient has a large defect in the nasal septum. There is no soft tissue mass or inflammation in the nasal fossa. 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 Steven was called with report Interpreted and Authenticated by: James Pagan 01/16/21
[2021-01-16] MEDS ORDERED: HEPARIN 5,000 UNIT/ML VIAL SQ ONE (13:08)
[2021-01-16] MEDS ORDERED: HEPARIN SOD,PORK IN 0.45% NACL 25,000 UNIT/500 ML BAG IV SCH (13:15)
[2021-01-16] MEDS ORDERED: NITROGLYCERIN (PP) 0.4 MG TAB.SUBL (#25) SL PRN (13:36)
--- NOTE | 2021-01-16 13:48 | Internal Med History&Physical ---
HPI History of Present Illness Patient information: Note initiated : 01/16/21 at 1:42 pm Service Date, if different from initiated Date: [] Patient: Allen Posey 85 y/o M admitted on for syncopal episodes. Chief Complaint: [pulmonary embolism] History of present illness: Mr. Posey is a 85 year old M history of CAD status post CABG x3, valvular replacement, status post pacemaker placement, presenting with 1 week history of gradual onset, gradually worsening general body weakness. Patient sustained a fall a week ago with hip contusions. Ever since then, he has gradually worsening general body weakness. Earlier this morning, when he was walking to his bed, his leg just gave out and he fell on the ground again. He denies any loss of consciousness. He denies any chest pain palpitations or shortness of breath. He denies any headache or confusions. He was sent by EMS to our ED for further evaluations. Vital signs at ED presentation significant for borderline hyper poor tensions with blood pressure as low as 77/60 mmHg. Oxygen saturations in the high 80s to low 90s. Rest of the vital signs within normal limits. Labs significant for lack of leukocytosis with WBC 7.2. Serum troponin 0.03. Serum creatinine POC 2.0, serum creatinine 1.71-month ago but it was not POC lab. Serum BNP 1154. Whole-body CT including CT angiogram of the chest showing bilateral pulmonary emboli with a saddle embolus in the main pulmonary artery. Constitutional Constitutional: Present weakness; Absent chills, excessive sweating, fatigue and fever(s) EENT Eyes: Absent blurry vision, change in vision, loss of vision and other visual disturbances Ears: Absent decreased hearing and tinnitus Nose, mouth and throat: Absent abnormal hearing, dry mouth, headache(s), nasal congestion and sore throat Cardiovascular Cardiovascular: Absent chest pain, chest pain at rest, edema, irregular heart rhythm and palpatations Respiratory Respiratory: Absent cough, dyspnea and wheezing Gastrointestinal Gastrointestinal: Absent abdominal pain, constipation, diarrhea, nausea and vomiting Musculoskeletal Musculoskeletal: Absent back pain, deformity, limited range of motion, muscle cramps, muscle weakness and numbness Integumentary Integumentary: Absent lesions, rash and wounds Neurological Neurological: Absent focal weakness, headache(s) and numbness Psychiatric Psychiatric: Absent anxiety, depression and hallucinations PFSH PFSH All Active Problems (Updated 01/16/21 @ 13:50 by Yeyo Lee MD) History of coronary artery bypass graft x 3 (Acute) Elevated troponin (Acute) Chronic kidney disease (CKD) stage G3b/A1, moderately decreased glomerular filtration rate (GFR) between 30-44 mL/min/1.73 square meter and albuminuria creatinine ratio less than 30 mg/g (Acute) Bilateral pulmonary embolism (Acute) Contusion of rib on right side (Acute) Contusion of right hip, initial encounter (Acute) Medical History Dupuytren's contracture of right hand Social History alcohol intake frequency: 2+ drinks per day substance use type: does not use MEDS/ALLERGIES Home Medications and Allergies Home Medications Medication Instructions Recorded Confirmed Type carvedilol 3.125 mg PO BIDCC 01/01/18 01/16/21 History hydrochlorothiazide 25 mg PO DAILY 01/01/18 01/16/21 History losartan [Cozaar] 50 mg PO DAILY 01/01/18 01/16/21 History pravastatin 40 mg PO HS 01/01/18 01/16/21 History nitroglycerin 0.4 mg SUBLINGUAL Q5M PRN 01/16/21 01/16/21 History Allergies Allergy/AdvReac Type Severity Reaction Status Date / Time morphine AdvReac Mild Itching Verified 12/23/20 12:11 EXAM Constitutional Vitals: Temp Pulse Resp BP Pulse Ox 35.5 C L 95 H 18 95/79 92 01/16/21 10:42 01/16/21 13:31 01/16/21 13:31 01/16/21 13:31 01/16/21 13:31 General appearance: cooperative and no acute distress Head Head exam: Present atraumatic and normocephalic Eye Eye exam: Present EOMI and PERRL ENT ENT exam: Present mucous membranes moist, normal exam and normal external ear exam Neck Neck exam: Present normal inspection; Absent lymphadenopathy, tenderness and thyromegaly Respiratory Respiratory exam: Present wheezes; Absent accessory muscle use and respiratory distress Cardiovascular Cardiovascular exam: Present normal rate and rhythm; Absent JVD Additional comments: cardiac pacemaker in place GI/Abdominal GI/Abdominal exam: Present normal bowel sounds and soft; Absent organomegaly and tenderness Rectal Rectal exam: Present deferred Extremities Exam Extremities exam: Present full ROM, normal capillary refill and normal inspection; Absent tenderness Neurological Exam Neurological exam: Present alert, CN II-XII intact and oriented X3; Absent motor sensory deficit Psychiatric Psychiatric exam: Present normal affect and normal mood; Absent anxious and depressed Skin Skin exam: Present dry and intact DATA Data Completed and Pending Labs: Labs from last 24 hours 01/16/21 01/16/21 01/16/21 10:55 10:55 10:55 WBC RBC Hgb Hct POC Hct 42 MCV MCH MCHC RDW Plt Count MPV Neut % (Auto) Lymph % (Auto) Sunflower % (Auto) Eos % (Auto) Baso % (Auto) Lymph # (Auto) Sunflower # (Auto) Eos # (Auto) Baso # (Auto) Absolute Neutrophils PT Pending INR Pending APTT Pending POC Sodium 134 POC Potassium 4.1 POC Chloride 98 POC Total CO2 23 POC BUN 33 H POC Creatinine 2.0 H POC Glucose 196 H POC WB Ioniz Calcium 1.11 L Troponin T 0.03 H NT-Pro-B Natriuret Pep 1154.0 H 01/16/21 10:55 WBC 7.2 RBC 4.20 L Hgb 14.1 Hct 43.5 POC Hct MCV 103.6 H MCH 33.6 MCHC 32.4 RDW 12.7 Plt Count 155 MPV 10.7 H Neut % (Auto) 61.9 Lymph % (Auto) 22.7 Sunflower % (Auto) 12.1 H Eos % (Auto) 2.2 Baso % (Auto) 1.1 Lymph # (Auto) 1.63 Sunflower # (Auto) 0.87 Eos # (Auto) 0.16 Baso # (Auto) 0.08 Absolute Neutrophils 4.44 PT INR APTT POC Sodium POC Potassium POC Chloride POC Total CO2 POC BUN POC Creatinine POC Glucose POC WB Ioniz Calcium Troponin T NT-Pro-B Natriuret Pep A/P Assessment and plan (1) Bilateral pulmonary embolism: Status: Acute (2) Chronic kidney disease (CKD) stage G3b/A1, moderately decreased glomerular filtration rate (GFR) between 30-44 mL/min/1.73 square meter and albuminuria creatinine ratio less than 30 mg/g: Status: Acute (3) Elevated troponin: Status: Acute (4) History of coronary artery bypass graft x 3: Status: Acute Narrative A/P Narrative: Assessment and Plans: 1. Pulmonary embolism, bilateral: Admit to inpatient PCU with telemetry No clear cut hemodynamic compromise for now, no thrombolysis therapy or thrombectomy for now Xarelto 15mg PO BID X3 weeks then 20mg PO daily Supplemental oxygen titrate to achieve spo2 >=92% 2D echocardiogram cbc w/ auto diff in the AM to trend H/H Physical therapy Occupational therapy 2. h/o CAD s/p CABGX3 and cardiac pacemaker placement Continue statin therapy Hold Coreg, Losartan, and HCTZ given soft blood pressure 3. Elevated troponin: Likely Type 2 HI 2/2 bilateral pulmonary embolism Treatment for PE, see #1 Serial Troponin-i ECG Nitroglycerin PRN chest pain 4. Chronic kidney disease stage 3: Avoid nephrotoxic agents Saline lock CMP in the AM to trend kidney functions GI ppx: Not currently indicated DVT ppx: Xarelto Code status: DNI DNR Prognosis: guarded Disposition: inpatient PCU telemetry Time Spent With Patient Time: Total time spent is greater than 50% in coordination of care (as documented) at patient's floor/unit and/or counseling patient: Total time spent with greater than 50% in coordination of care (as documented) at patient's floor/unit and/or counseling patient:: Greater than 35 minutes
[2021-01-16 13:54] LABS: INR 1.2 (0.9-1.1); Partial Thromboplastin Time 35.9 sec (20.0-37.0); Prothrombin Time 15.7 sec (11.9-14.5)
[2021-01-16] MEDS ORDERED: ACETAMINOPHEN 325 MG TABLET PO PRN (15:05)
[2021-01-16] MEDS ORDERED: IPRATROPIUM/ALBUTEROL 3 ML AMPUL.NEB NEB PRN (15:05)
[2021-01-16] MEDS ORDERED: ONDANSETRON 4 MG/2 ML VIAL IV PRN (15:05)
[2021-01-16] MEDS ORDERED: SENNOSIDES 1 TABLET PO PRN (15:05)
[2021-01-16] MEDS ORDERED: LACTULOSE 20 GM/30 ML ORAL.SOL PO PRN (15:05)
[2021-01-16] MEDS ORDERED: NITROGLYCERIN 0.4 MG TAB.SUBL SL PRN (15:13)
--- NOTE | 2021-01-16 15:18 | EKG ---
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
[2021-01-16] MEDS: 0.9 % SODIUM CHLORIDE 10 ML SYRINGE IV SCH ×2 (15:24→21:45)
[2021-01-16] MEDS ORDERED: CARVEDILOL 3.125 MG TABLET PO SCH (17:30)
[2021-01-16] MEDS ORDERED: RIVAROXABAN 15 MG TABLET PO SCH (17:30)
[2021-01-16] MEDS: APIXABAN 5 MG TABLET PO SCH (20:57)
[2021-01-16] MEDS: DOCUSATE SODIUM 100 MG CAPSULE PO SCH (20:57)
[2021-01-16] MEDS: SIMVASTATIN 20 MG TABLET PO SCH (20:58)
[2021-01-16] MEDS ORDERED: PRAVASTATIN 40 MG TABLET PO SCH (21:00)
[2021-01-16 21:41] LABS: ALT/SGPT 136 U/L (<40); AST/SGOT 161 U/L (<40); Albumin 3.7 gm/dL (3.2-5.2); Albumin/Globulin Ratio 1.2 (1.0-2.3); Alkaline Phosphatase 113 U/L (39-117); Blood Urea Nitrogen 29 mg/dL (8-23); Calcium 8.7 mg/dL (8.6-10.4); Carbon Dioxide 22 mmol/L (22-30); Chloride 95 mmol/L (96-108); Globulin 3.2 gm/dL (2.2-3.7); Glomerular Filtration Rate 39; Glucose 110 mg/dL (70-105)
[2021-01-17] MEDS: 0.9 % SODIUM CHLORIDE 10 ML SYRINGE IV SCH ×3 (07:46→20:26)
[2021-01-17] MEDS: APIXABAN 5 MG TABLET PO SCH ×2 (08:31→20:26)
[2021-01-17] MEDS: DOCUSATE SODIUM 100 MG CAPSULE PO SCH ×2 (08:31→20:20)
[2021-01-17 08:34] LABS: ALT/SGPT 102 U/L (<40); AST/SGOT 85 U/L (<40); Albumin 3.7 gm/dL (3.2-5.2); Albumin/Globulin Ratio 1.3 (1.0-2.3); Alkaline Phosphatase 102 U/L (39-117); Bilirubin,Total 1.1 mg/dL (0.1-1.0); Blood Urea Nitrogen 28 mg/dL (8-23); Calcium 8.9 mg/dL (8.6-10.4); Carbon Dioxide 21 mmol/L (22-30); Chloride 101 mmol/L (96-108); Globulin 2.8 gm/dL (2.2-3.7); Glomerular Filtration Rate 46; Glucose 85 mg/dL (70-105)
--- NOTE | 2021-01-17 09:53 | XRay Report ---
HISTORY: Short of breath, pulmonary emboli FINDINGS: The lungs are clear and well expanded. There is no evidence of infiltrate or atelectasis. The heart size is normal. No congestive heart failure is present. No adenopathy or pleural effusion are present. Pacemaker remains well-positioned. Comparison is made with the chest CT performed yesterday. The pulmonary emboli seen on the CT are not identified on chest x-ray. IMPRESSION: Normal exam Interpreted and Authenticated by: James Pagan 01/17/21
[2021-01-17 10:11] LABS: Basophils # (Auto) 0.06 K/mcL (0.00-0.30); Basophils % (Auto) 0.8 % (0.0-2.0); Eosinophils # (Auto) 0.14 K/mcL (0.00-0.70); Eosinophils % (Auto) 1.8 % (0.0-7.0); Hematocrit 40.3 % (40.1-51.0); Hemoglobin 13.5 g/dL (13.7-17.5); Lymphocytes # (Auto) 1.44 K/mcL (1.50-4.80); Lymphocytes % (Auto) 18.2 % (15.5-49.0); Mean Cell Volume 100.5 fL (80.0-100.0); Mean Corpuscular HGB Conc 33.5 g/dL (31.0-36.0); Mean Platelet Volume 10.9 fL (7.4-10.4); Monocytes # (Auto) 1.09 K/mcL (0.10-0.90); Monocytes % (Auto) 13.8 % (1.0-12.0); Neutrophils % (Auto) 65.4 % (38.0-78.0); Platelet Count 125 K/mcL (140-440); RBC 4.01 M/mcL (4.63-6.08); Red Cell Distribution Width 12.9 % (11.5-14.5); WBC 7.9 K/mcL (4.5-11.0)
--- NOTE | 2021-01-17 15:15 | Internal Med Progress Note ---
SUBJECTIVE Subjective Patient information: Note initiated : 01/17/21 at 3:12 pm Service Date, if different from initiated Date: [] Patient: Allen Posey 85 y/o M admitted on 01/16/21 for syncopal episodes. Chief Complaint: [bilateral PE] Interval history: History of present illness: Mr. Posey is a 85 year old M history of CAD status post CABG x3, valvular replacement, status post pacemaker placement, presenting with 1 week history of gradual onset, gradually worsening general body weakness. Patient sustained a fall a week ago with hip contusions. Ever since then, he has gradually worsening general body weakness. Earlier this morning, when he was walking to his bed, his leg just gave out and he fell on the ground again. He denies any loss of consciousness. He denies any chest pain palpitations or shortness of breath. He denies any headache or confusions. He was sent by EMS to our ED for further evaluations. Vital signs at ED pre sentation significant for borderline hyper poor tensions with blood pressure as low as 77/60 mmHg. Oxygen saturations in the high 80s to low 90s. Rest of the vital signs within normal limits. Labs significant for lack of leukocytosis with WBC 7.2. Serum troponin 0.03. Serum creatinine POC 2.0, serum creatinine 1.71-month ago but it was not POC lab. Serum BNP 1154. Whole-body CT including CT angiogram of the chest showing bilateral pulmonary emboli with a saddle embolus in the main pulmonary artery. 01/17: Been on room air. Blood pressure improves. H/H: 14.1/43.5-->13.5/40.3. Serial Tr oponin-i 0.03-->0.28-->0.21. No hematemesis or hematochezia/bloody stool. Denies chest pain. Denies palpitation. Denies SOB. Denies anxiety. Constitutional Vitals: Vital Signs Temp Pulse Resp BP Pulse Ox 36.9 C 82 21 133/78 96 01/17/21 12:01 01/17/21 12:06 01/17/21 12:06 01/17/21 12:01 01/17/21 12:06 Period Temp Pulse Resp BP Sys/Mccann Pulse Ox Last 24 Hr 36.1 C-36.9 C 71-95 13-27 93-151/65-105 94-97 Intake and Output 01/17/21 01/17/21 01/17/21 05:59 13:59 21:59 Intake Total 0 360 Output Total 650 700 Balance -650 -340 Intake & Output: Intake & Output 01/17/21 01/17/21 01/17/21 05:59 13:59 21:59 Intake Total 0 360 Output Total 650 700 Balance -650 -340 Intake: Oral 0 360 Output: Void Amount 650 700 Other: Meal Breakfast Percent of Meal Consumed 100% Urine Appearance Clear Clear Urine Color Bright Yellow Bright Yellow Urine Odor Normal General appearance: cooperative and no acute distress Head Head exam: Present atraumatic and normocephalic Eye Eye exam: Present EOMI and PERRL ENT ENT exam: Present mucous membranes moist, normal exam and normal external ear exam Neck Neck exam: Present normal inspection; Absent lymphadenopathy, tenderness and thyromegaly Respiratory Respiratory exam: Absent accessory muscle use, respiratory distress and wheezes Cardiovascular Cardiovascular exam: Present normal rate and rhythm; Absent JVD Additional comments: Cardiac pacemaker in place GI/Abdominal GI/Abdominal exam: Present normal bowel sounds and soft; Absent organomegaly and tenderness Rectal Rectal exam: Present deferred Extremities Exam Extremities exam: Present full ROM, normal capillary refill and normal inspection; Absent tenderness Neurological Exam Neurological exam: Present alert, CN II-XII intact and oriented X3; Absent motor sensory deficit Psychiatric Psychiatric exam: Present normal affect and normal mood; Absent anxious and depressed Skin Skin exam: Present dry and intact OBJ DATA Labs CBC & Chem 7: 01/17/21 05:51 01/17/21 05:51 Labs: Abnormal Lab Results 01/17/21 01/17/21 01/17/21 05:51 05:51 00:08 RBC 4.01 L Hgb 13.5 L MCV 100.5 H Plt Count 125 L MPV 10.9 H Kershaw % (Auto) 13.8 H Lymph # (Auto) 1.44 L [place] # (Auto) 1.09 H PT INR APTT Sodium Chloride Carbon Dioxide 21 L POC BUN BUN 28 H Creatinine 1.4 H POC Creatinine Glucose POC Glucose POC WB Ioniz Calcium Total Bilirubin 1.1 H AST 85 H ALT 102 H Troponin T 0.21 H* NT-Pro-B Natriuret Pep 01/16/21 01/16/21 01/16/21 20:02 20:01 20:01 RBC Hgb MCV Plt Count MPV [place]haw % (Auto) Lymph # (Auto) [place] # (Auto) PT INR APTT 173.0 H* Sodium 130 L Chloride 95 L Carbon Dioxide POC BUN BUN 29 H Creatinine 1.6 H POC Creatinine Glucose 110 H POC Glucose POC WB Ioniz Calcium Total Bilirubin AST 161 H ALT 136 H Troponin T 0.28 H* NT-Pro-B Natriuret Pep 01/16/21 01/16/21 01/16/21 10:55 10:55 10:55 RBC Hgb MCV Plt Count MPV [place]haw % (Auto) Lymph # (Auto) [place] # (Auto) PT 15.7 H INR 1.2 H APTT Sodium Chloride Carbon Dioxide POC BUN 33 H BUN Creatinine POC Creatinine 2.0 H Glucose POC Glucose 196 H POC WB Ioniz Calcium 1.11 L Total Bilirubin AST ALT Troponin T 0.03 H NT-Pro-B Natriuret Pep 1154.0 H 01/16/21 10:55 RBC 4.20 L Hgb MCV 103.6 H Plt Count MPV 10.7 H [place] % (Auto) 12.1 H Lymph # (Auto) [place] # (Auto) PT INR APTT Sodium Chloride Carbon Dioxide POC BUN BUN Creatinine POC Creatinine Glucose POC Glucose POC WB Ioniz Calcium Total Bilirubin AST ALT Troponin T NT-Pro-B Natriuret Pep Meds: Medications Acetaminophen (Acetaminophen 325 Mg Tablet) 650 mg PO Q6HP PRN; Protocol PRN Reason: Per Pain Protocol/Fever > 101 Albuterol/Ipratropium (Ipratropium/Albuterol 3 Ml Ampul.Neb) 3 ml NEB Q4HRT PRN PRN Reason: Wheezing Apixaban (Apixaban 5 Mg Tablet) 10 mg PO BID [facility] Stop: 01/23/21 09:01 Last Admin: 01/17/21 08:31 Dose: 10 mg Documented by: Docusate Sodium (Docusate Sodium 100 Mg Capsule) 100 mg PO BID [facility] Last Admin: 01/17/21 08:31 Dose: 100 mg Documented by: Lactulose (Lactulose 20 Gm/30 Ml Oral.Agueda) 10 gm PO DAILYP PRN PRN Reason: Constipation Nitroglycerin (Nitroglycerin 0.4 Mg Tab.Subl) 0.4 mg SL Q5M PRN PRN Reason: Chest Pain Ondansetron HCl (Ondansetron 4 Mg/2 Ml Vial) 4 mg IV Q4HP PRN; Protocol PRN Reason: Nausea And Vomiting Pneumococcal Polyvalent Vaccine (Pneumococcal 23-Belle P-Sac Vac 0.5 Ml Syringe) 0.5 ml IM .ONCE ONE Stop: 01/18/21 10:01 Senna (Sennosides 1 Tablet) 2 tab PO HSP PRN PRN Reason: Constipation Simvastatin (Simvastatin 20 Mg Tablet) 20 mg PO HS [facility] Last Admin: 01/16/21 20:58 Dose: 20 mg Documented by: Sodium Chloride (0.9 % Sodium Chloride 10 Ml Syringe) 10 ml IV Q8 [facility] Last Admin: 01/17/21 07:46 Dose: 10 ml Documented by: A/P Assessment and plan (1) Bilateral pulmonary embolism: Status: Acute (2) Chronic kidney disease (CKD) stage G3b/A1, moderately decreased glomerular filtration rate (GFR) between 30-44 mL/min/1.73 square meter and albuminuria creatinine ratio less than 30 mg/g: Status: Acute (3) Elevated troponin: Status: Acute (4) History of coronary artery bypass graft x 3: Status: Acute Narrative A/P Narrative: Assessment and Plans: 1. Pulmonary embolism, bilateral: Stays in inpatient PCU with telemetry No clear cut hemodynamic compromise for now, no thrombolysis therapy or thromb ectomy for now Xarelto 15mg PO BID X3 weeks then 20mg PO daily Supplemental oxygen titrate to achieve spo2 >=92% 2D echocardiogram, results pending cbc w/ auto diff in the AM to trend H/H Physical therapy Occupational therapy 2. h/o CAD s/p CABGX3 and cardiac pacemaker placement Continue statin therapy Continue Coreg Resume Losartan, and HCTZ now given improving blood pressure 3. Elevated troponin: Likely Type 2 DC 2/2 bilateral pulmonary embolism Treatment for PE, see #1 Serial Troponin-i 0.03-->0.28-->0.21 ECG Nitroglycerin PRN chest pain 4. Chronic kidney disease stage 3: Avoid nephrotoxic agents Saline lock CMP in the AM to trend kidney functions GI ppx: Not currently indicated DVT ppx: Xarelto Code status: DNI DNR Prognosis: guarded Disposition: inpatient PCU telemetry Time Spent With Patient Time: Total time spent is greater than 50% in coordination of care (as documented) at patient's floor/unit and/or counseling patient: QUALITY VTE Deep Vein Thrombosis/Pulmonary Embolism Present on Admission: Yes
[2021-01-17] MEDS: SIMVASTATIN 20 MG TABLET PO SCH (20:26)
[2021-01-18] MEDS: 0.9 % SODIUM CHLORIDE 10 ML SYRINGE IV SCH (05:30)
[2021-01-18 07:52] LABS: Basophils # (Auto) 0.06 K/mcL (0.00-0.30); Basophils % (Auto) 0.8 % (0.0-2.0); Eosinophils % (Auto) 2.8 % (0.0-7.0); Hematocrit 39.8 % (40.1-51.0); Hemoglobin 13.9 g/dL (13.7-17.5); Lymphocytes # (Auto) 1.26 K/mcL (1.50-4.80); Lymphocytes % (Auto) 17.4 % (15.5-49.0); Mean Cell Volume 99.3 fL (80.0-100.0); Mean Corpuscular HGB Conc 34.9 g/dL (31.0-36.0); Mean Platelet Volume 10.7 fL (7.4-10.4); Monocytes # (Auto) 1.01 K/mcL (0.10-0.90); Monocytes % (Auto) 13.9 % (1.0-12.0); Neutrophils % (Auto) 65.1 % (38.0-78.0); Platelet Count 132 K/mcL (140-440); RBC 4.01 M/mcL (4.63-6.08); Red Cell Distribution Width 12.5 % (11.5-14.5); WBC 7.3 K/mcL (4.5-11.0)
[2021-01-18] MEDS: DOCUSATE SODIUM 100 MG CAPSULE PO SCH (08:06)
[2021-01-18] MEDS: APIXABAN 5 MG TABLET PO SCH (08:06)
[2021-01-18 08:14] LABS: ALT/SGPT 64 U/L (<40); AST/SGOT 42 U/L (<40); Albumin 3.5 gm/dL (3.2-5.2); Albumin/Globulin Ratio 1.2 (1.0-2.3); Alkaline Phosphatase 96 U/L (39-117); Bilirubin,Total 1.1 mg/dL (0.1-1.0); Blood Urea Nitrogen 20 mg/dL (8-23); Calcium 9.1 mg/dL (8.6-10.4); Carbon Dioxide 24 mmol/L (22-30); Chloride 98 mmol/L (96-108); Globulin 2.9 gm/dL (2.2-3.7); Glomerular Filtration Rate 55; Glucose 94 mg/dL (70-105)
--- NOTE | 2021-01-18 08:52 | XRay Report ---
HISTORY: Short of breath, pulmonary emboli FINDINGS: The lungs are clear and well expanded. There is no evidence of pneumonia, atelectasis or pulmonary vascular congestion. The heart size is normal. Pacemaker remains well-positioned. There are sternal wires. Comparison with the prior exam from 01/17/21 shows no change. IMPRESSION: Normal exam Interpreted and Authenticated by: James Pagan 01/18/21
[2021-01-18] MEDS ORDERED: HYDROCHLOROTHIAZIDE 25 MG TABLET PO SCH (09:00)
[2021-01-18] MEDS ORDERED: LOSARTAN 50 MG TABLET PO SCH (09:00)
[2021-01-18] MEDS ORDERED: PNEUMOCOCCAL 23-VAL P-SAC VAC 0.5 ML SYRINGE IM ONE (10:00)
--- NOTE | 2021-01-18 10:35 | Discharge Summary ---
Discharge Provider Provider Patient information: Note initiated : 01/18/21 at 10:32 am Service Date, if different from initiated Date: [] Patient: Allen Posey 85 y/o M admitted on 01/16/21 for syncopal episodes. Chief Complaint: [PE] History of present illness: Mr. Posey is a 85 year old M history of CAD status post CABG x3, valvular replacement, status post pacemaker placement, presenting with 1 week history of gradual onset, gradually worsening general body weakness. Patient sustained a fall a week ago with hip contusions. Ever since then, he has gradually worsening general body weakness. Earlier this morning, when he was walking to his bed, his leg just gave out and he fell on the ground again. He denies any loss of consciousness. He denies any chest pain palpitations or shortness of breath. He denies any headache or confusions. He was sent by EMS to our ED for further evaluations. Vital signs at ED presentation significant for borderline hyper poor tensions with blood pressure as low as 77/60 mmHg. Oxygen saturations in the high 80s to low 90s. Rest of the vital signs within normal limits. Labs significant for lack of leukocytosis with WBC 7.2. Serum troponin 0.03. Serum creatinine POC 2.0, serum creatinine 1.71-month ago but it was not POC lab. Serum BNP 1154. Whole-body CT including CT angiogram of the chest showing bilateral pulmonary emboli with a saddle embolus in the main pulmonary artery. Date of admission: 01/16/21 14:37 Discharge date: 01/18/21 Primary care physician: Chastity Huynh Consults: 01/16/21 Consult to Physician [CONS] Stat Comment: Consulting Provider: Yeyo Lee Reason For Exam: Physician to Consult Discharge Meds Discharge Medications Home Medications carvedilol 3.125 mg PO BIDCC 01/01/18 [History Confirmed 01/16/21 Last Taken 12/23/20] hydrochlorothiazide 25 mg PO DAILY 01/01/18 [History Confirmed 01/16/21 Last Taken 12/23/20] losartan [Cozaar] 50 mg PO DAILY 01/01/18 [History Confirmed 01/16/21 Last Taken 12/23/20] pravastatin 40 mg PO HS 01/01/18 [History Confirmed 01/16/21 Last Taken 12/22/20] nitroglycerin 0.4 mg SUBLINGUAL Q5M PRN 01/16/21 [History Confirmed 01/16/21 Last Taken Unknown] apixaban [Eliquis] 10 mg PO BID 7 Days #28 tab 01/18/21 [Rx Last Taken Unknown] COURSE Hospital Course Hospital course: History of present illness: Mr. Posey is a 85 year old M history of CAD status post CABG x3, valvular replacement, status post pacemaker placement, presenting with 1 week history of gradual onset, gradually worsening general body weakness. Patient sustained a fall a week ago with hip contusions. Ever since then, he has gradually worsening general body weakness. Earlier this morning, when he was walking to his bed, his leg just gave out and he fell on the ground again. He denies any loss of consciousness. He denies any chest pain palpitations or shortness of breath. He denies any headache or confusions. He was sent by EMS to our ED for further evaluations. Vital signs at ED presentation significant for borderline hyper poor tensions with blood pressure as low as 77/60 mmHg. Oxygen saturations in the high 80s to low 90s. Rest of the vital signs within normal limits. Labs significant for lack of leukocytosis with WBC 7.2. Serum troponin 0.03. Serum creatinine POC 2.0, serum creatinine 1.71-month ago but it was not POC lab. Serum BNP 1154. Whole-body CT including CT angiogram of the chest showing bilateral pulmonary emboli with a saddle embolus in the main pulmonary artery. 01/17: Been on room air. Blood pressure improves. H/H: 14.1/43.5-->13.5/40.3. Serial Troponin-i 0.03-->0.28-->0.21. No hematemesis or hematochezia/bloody stool. Denies chest pain. Denies palpitation. Denies SOB. Denies anxiety. 01/18: Reached clinical stability. Decision made to discharge patient home with Rx Eliquis given, and 1 week PCP follow up appointment made for him. All questions were answered prior to patient being physically discharged. Discharge diagnosis: pulmonary enbolism Time Spent with Patient Time attestation: Total time spent providing and/or coordinating discharge services: Interval history: History of present illness: Mr. Posey is a 85 year old M history of CAD status post CABG x3, valvular replacement, status post pacemaker placement, presenting with 1 week history of gradual onset, gradually worsening general body weakness. Patient sustained a fall a week ago with hip contusions. Ever since then, he has gradually worsening general body weakness. Earlier this morning, when he was walking to his bed, his leg just gave out and he fell on the ground again. He denies any loss of consciousness. He denies any chest pain palpitations or shortness of breath. He denies any headache or confusions. He was sent by EMS to our ED for further evaluations. Vital signs at ED presentation significant for borderline hyper poor tensions with blood pressure as low as 77/60 mmHg. Oxygen saturations in the high 80s to low 90s. Rest of the vital signs within normal limits. Labs significant for lack of leukocytosis with WBC 7.2. Serum troponin 0.03. Serum creatinine POC 2.0, serum creatinine 1.71-month ago but it was not POC lab. Serum BNP 1154. Whole-body CT including CT angiogram of the chest showing bilateral pulmonary emboli with a saddle embolus in the main pulmonary artery. 01/17: Been on room air. Blood pressure improves. H/H: 14.1/43.5-->13.5/40.3. Serial Troponin-i 0.03-->0.28-->0.21. No hematemesis or hematochezia/bloody stool. Denies chest pain. Denies palpitation. Denies SOB. Denies anxiety. 01/18: Reached clinical stability. Decision made to discharge patient home with Rx Eliquis given, and 1 week PCP follow up appointment made for him. All questions were answered prior to patient being physically discharged. EXAM Constitutional Vitals: Temp Pulse Resp BP Pulse Ox 36.1 C 83 18 151/82 97 01/18/21 08:01 01/18/21 08:12 01/17/21 14:00 01/18/21 08:01 01/18/21 08:12 General appearance: cooperative and no acute distress Head Head exam: Present atraumatic and normocephalic Eye Eye exam: Present EOMI and PERRL ENT ENT exam: Present mucous membranes moist, normal exam and normal external ear exam Neck Neck exam: Present normal inspection; Absent lymphadenopathy, tenderness and thyromegaly Respiratory Respiratory exam: Absent accessory muscle use, respiratory distress and wheezes Cardiovascular Cardiovascular exam: Present normal rate and rhythm; Absent JVD GI/Abdominal GI/Abdominal exam: Present normal bowel sounds and soft; Absent organomegaly and tenderness Rectal Rectal exam: Present deferred Extremities Exam Extremities exam: Present full ROM, normal capillary refill and normal inspection; Absent tenderness Neurological Exam Neurological exam: Present alert, CN II-XII intact and oriented X3; Absent motor sensory deficit Psychiatric Psychiatric exam: Present normal affect and normal mood; Absent anxious and depressed Skin Skin exam: Present dry and intact Discharge Data Data Completed and Pending Labs on day of discharge: Labs from last 24 hours 01/18/21 01/18/21 05:44 05:44 WBC 7.3 RBC 4.01 L Hgb 13.9 Hct 39.8 L MCV 99.3 MCH 34.7 H MCHC 34.9 RDW 12.5 Plt Count 132 L MPV 10.7 H Neut % (Auto) 65.1 Lymph % (Auto) 17.4 Wilcox % (Auto) 13.9 H Eos % (Auto) 2.8 Baso % (Auto) 0.8 Lymph # (Auto) 1.26 L Wilcox # (Auto) 1.01 H Eos # (Auto) 0.20 Baso # (Auto) 0.06 Absolute Neutrophils 4.73 Sodium 134 Potassium 4.0 Chloride 98 Carbon Dioxide 24 Anion Gap 12.0 BUN 20 Creatinine 1.2 GFR Calculation 55 Glucose 94 Calcium 9.1 Total Bilirubin 1.1 H AST 42 H ALT 64 H Alkaline Phosphatase 96 Total Protein 6.4 Albumin 3.5 Globulin 2.9 Albumin/Globulin Ratio 1.2 Discharge Plan Patient/Caregiver Discharge Instructions Activity: increase activity as tolerated Diet: Regular Diet Instructions: Apixaban (By mouth), Pulmonary Embolism (GEN) Prescriptions: New Eliquis 5 mg Tablet 10 mg PO BID 7 Days Qty: 28 RF: 1 Continued losartan [Cozaar] 50 MG tablet 50 mg PO DAILY RF: 0 pravastatin 40 MG tablet 40 mg PO HS RF: 0 carvedilol 3.125 MG tablet 3.125 mg PO BIDCC RF: 0 hydrochlorothiazide 25 MG tablet 25 mg PO DAILY RF: 0 nitroglycerin 0.4 mg Tablet, Sublingual 0.4 mg SUBLINGUAL Q5M PRN (Reason: chest pain) RF: 0 Follow Up Plan Follow up with: Chastity Huynh MD [Primary Care Provider] - 01/25/21 11:15 am Patient Disposition: Home, Self-Care Prognosis: Fair Rehab Potential: Good I certify that the patient requires SNF services: No Overall status at discharge: patient is back to baseline Discharge Orders: Discharge Order (Routine); Ordered 01/18/21 Ordered By: Yeyo RAMIRES VTE Deep Vein Thrombosis/Pulmonary Embolism Present on Admission: Yes
== END 2021-01-18 11:22 | disposition home or self-care (01) | DRG 176 ==
LOC: ED 10:33 → ICU 14:37
PROVIDERS: ADMIT Internal Medicine; ATTEND Internal Medicine